=== PATIENT | female | born 1980 ===

== ENCOUNTER 2017-05-24 06:25 | Day surgery (SDC) | payer OTHER | END 2017-05-24 09:35 | disposition home or self-care (01) | LOC: AMB-ENDOS 06:25 | DX: D13.1 Benign neoplasm of stomach (principal); K29.50 Unspecified chronic gastritis without bleeding; K44.9 Diaphragmatic hernia without obstruction or gangrene; K31.7 Polyp of stomach and duodenum ==

== ENCOUNTER 2019-04-11 08:30 | Inpatient (IN) | payer OTHER ==
[~2019-04-11] VITALS: Ht 170.2 cm; Wt 70.8 kg
== END 2019-04-15 15:05 | disposition home or self-care (01) | DRG 581 ==
LOC: SURH 04-14 08:30 → O/R 04-14 08:30 → SURH 04-14 13:45
PROVIDERS: ADMIT Plastic Surgery
PROC: 0H0V0ZZ Alteration of Bilateral Breast, Open Approach (ICD-10-PCS; 2019-04-14)
PROC: 0HB7XZZ Excision of Abdomen Skin, External Approach (ICD-10-PCS; 2019-04-14)
PROC: 0W0F0ZZ Alteration of Abdominal Wall, Open Approach (ICD-10-PCS; principal; 2019-04-14 13:45)
DX: N62 Hypertrophy of breast (principal); M62.08 Separation of muscle (nontraumatic), other site; M79.3 Panniculitis, unspecified; Z98.84 Bariatric surgery status